=== PATIENT | male | born 1960 | race Caucasian/White ===

== ENCOUNTER 2017-09-16 15:36 | Emergency (ER) | payer OTHER ==
[2017-09-16] MEDS ORDERED: Sodium Chloride 0.9% 10 ML Syringe FLUSH PRN (15:38)
[2017-09-16] MEDS ORDERED: Sodium Chloride 0.9% 2.5 ML Syringe FLUSH PRN (15:38)
--- NOTE | 2017-09-16 15:45 | EDM.PDOC ---
<Mary Menjivar - Last Filed: 09/16/17 15:49> ED HPI GENERAL MEDICAL PROBLEM - General Chief Complaint: Neuro Symptoms/Deficits Stated Complaint: STROKE SYMPTOMS Time Seen by Provider: 09/16/17 15:38 Source of Information: Reports: Patient History Limitations: Reports: No Limitations - History of Present Illness INITIAL COMMENTS - FREE TEXT/NARRATIVE: History of present illness: []Patient noticed yesterday afternoon that he had right-sided facial swelling and numbness. He took Benadryl last night it seemed to helped. Today he was driving and noticed numbness and tingling of his left arm proximally one hour prior to arrival. He denies any headache, visual changes, weakness, speech difficulty, clumsiness or difficulty walking. Patient has had back pain under his ribs for about a month does not know why, denies any trauma. He is generally healthy and takes a baby aspirin and imaging E daily. Denies any heart disease, high blood pressure high cholesterol. Review of systems: As per history of present illness and below otherwise all systems reviewed and negative. Past medical history: As per history of present illness and as reviewed below otherwise noncontributory. Surgical history: As per history of present illness and as reviewed below otherwise noncontributory. Social history: No reported history of drug or alcohol abuse. Family history: As per history of present illness and as reviewed below otherwise noncontributory. Physical exam: General: Well developed, well nourished in NAD HEENT: Atraumatic, normocephalic, pupils reactive, negative for conjunctival pallor or scleral icterus, mucous membranes moist, throat clear, neck supple, nontender, trachea midline. Lungs: Clear to auscultation, breath sounds equal bilaterally, chest nontender. Heart: S1S2, regular, negative for clicks, rubs, or JVD. Abdomen: Soft, nondistended, nontender. Negative for masses or hepatosplenomegaly. Negative for costovertebral tenderness. Pelvis: Stable nontender. Genitourinary: Deferred. Rectal: Deferred. Extremities: Atraumatic, negative for cords or calf pain. Neurovascular unremarkable. Neuro: Awake, alert, oriented. Cranial nerves II through XII unremarkable. Cerebellum unremarkable. Motor and sensory unremarkable throughout. Exam nonfocal. Diagnostics: []CT head negative the rest of his workup will be followed up by Dr. [employer]: [] Impression: [] Plan: []Disposition per Dr. Holland Definitive disposition and diagnosis as appropriate pending reevaluation and review of above. - Related Data Allergies Allergy/AdvReac Type Severity Reaction Status Date / Time No Known Allergies Allergy Verified 09/16/17 15:58 Home Meds: Home Meds Aspirin [Adult Aspirin] 81 mg PO DAILY 09/16/17 [History] Vitamin E 1 unit PO DAILY 09/16/17 [History] ED ROS GENERAL - Review of Systems Review Of Systems: See Below (See history of present illness) ED EXAM, NEURO - Physical Exam Exam: See Below (See history of present illness) Course - Vital Signs Last Recorded V/S: Last Vital Signs Temp 97.4 F 09/16/17 15:49 Pulse 92 09/16/17 16:08 Resp 18 09/16/17 16:08 BP 124/84 09/16/17 16:08 Pulse Ox 94 L 09/16/17 16:08 - Orders/Labs/Meds Orders: Active Orders 24 hr Category Date Time Status Assess Neurological Status [RC] ASDIRECTED Care 09/16/17 15:38 Active Bedrest [RC] ASDIRECTED Care 09/16/17 15:38 Active Blood Glucose Check, Bedside [RC] STAT Care 09/16/17 15:38 Active Cardiac Monitoring [RC] . DIRECTED Care 09/16/17 15:38 Active EKG Documentation Completion [RC] STAT Care 09/16/17 15:38 Active Height and Weight [RC] UPON Care 09/16/17 15:38 Active Initiate Acute Stroke Protocol [RC] STAT Care 09/16/17 15:38 Active NIH Stroke Scale [RC] ASDIRECTED Care 09/16/17 15:38 Active Nursing Bedside Swallow Screen [RC] ASDIRECTED Care 09/16/17 15:38 Active Oxygen Therapy [RC] ASDIRECTED Care 09/16/17 15:38 Active Stroke Education, General [RC] Click to Edit Care 09/16/17 15:38 Active Vital Signs [RC] Q15M Care 09/16/17 15:38 Active Chest 1V Frontal [CR] Stat Exams 09/16/17 16:45 Taken Sodium Chloride 0.9% [Saline Flush] Med 09/16/17 15:38 Active 10 ml FLUSH ASDIRECTED PRN Sodium Chloride 0.9% [Saline Flush] Med 09/16/17 15:38 Active 2.5 ml FLUSH ASDIRECTED PRN Peripheral IV Insertion Adult [OM.PC] Stat Ot 09/16/17 15:38 Ordered Peripheral IV Insertion Adult [OM.PC] Stat Ot 09/16/17 15:38 Ordered Medication Orders Sodium Chloride (Saline Flush) 10 ml FLUSH ASDIRECTED PRN PRN Reason: Keep Vein Open Last Admin: 09/16/17 16:02 Dose: 10 ml Sodium Chloride (Saline Flush) 2.5 ml FLUSH ASDIRECTED PRN PRN Reason: Keep Vein Open Last Admin: 09/16/17 16:02 Dose: 2.5 ml Labs: Laboratory Tests 09/16/17 09/16/17 09/16/17 Range/Units 15:40 15:40 15:40 WBC 6.67 (4.0-11.0) K/uL RBC 4.96 (4.50-5.90) M/uL Hgb 15.1 (13.0-17.0) g/dL Hct 43.7 (38.0-50.0) % MCV 88.1 (80.0-98.0) fL MCH 30.4 (27.0-32.0) pg MCHC 34.6 (31.0-37.0) g/dL RDW Std Deviation 41.8 (28.0-62.0) fl RDW Coeff of Cait 13 (11.0-15.0) % Plt Count 226 (150-400) K/uL MPV 9.60 (7.40-12.00) fL Neut % (Auto) 68.3 (48.0-80.0) % Lymph % (Auto) 23.4 (16.0-40.0) % [place] % (Auto) 7.8 (0.0-15.0) % Eos % (Auto) 0.1 (0.0-7.0) % Baso % (Auto) 0.4 (0.0-1.5) % Neut # (Auto) 4.6 (1.4-5.7) K/uL Lymph # (Auto) 1.6 (0.6-2.4) K/uL [place] # (Auto) 0.5 (0.0-0.8) K/uL Eos # (Auto) 0.0 (0.0-0.7) K/uL Baso # (Auto) 0.0 (0.0-0.1) K/uL Nucleated RBC % 0.0 /100WBC Nucleated RBCs # 0 K/uL INR 0.93 APTT 28.9 (18.6-31.3) SEC Sodium 138 (136-148) mmol/L Potassium 3.8 (3.5-5.1) mmol/L Chloride 105 (98-107) mmol/L Carbon Dioxide 25.9 (21.0-32.0) mmol/L BUN 16 (7.0-18.0) mg/dL Creatinine 1.1 (0.8-1.3) mg/dL Est Cr Clr Drug Dosing 80.34 mL/min Estimated GFR (MDRD) > 60.0 ml/min Glucose 143 H (74-106) mg/dL Calcium 8.7 (8.5-10.1) mg/dL Total Bilirubin 0.3 (0.2-1.0) mg/dL AST 20 (15-37) IU/L ALT 25 (14-63) IU/L Alkaline Phosphatase 95 (46-116) U/L Troponin I < 0.050 (0.000-0.056) ng/mL Total Protein 7.8 (6.4-8.2) g/dL Albumin 4.0 (3.4-5.0) g/dL Globulin 3.8 H (2.0-3.5) g/dL Albumin/Globulin Ratio 1.1 L (1.3-2.8) TSH 3rd Generation 1.40 (0.36-3.74) uIU/mL Meds: Medications Generic Name Dose Route Start Last Admin Trade Name Freq PRN Reason Stop Dose Admin Sodium Chloride 10 ml 09/16/17 15:38 09/16/17 16:02 Saline Flush FLUSH 10 ml ASDIRECTED PRN Administration Keep Vein Open Sodium Chloride 2.5 ml 09/16/17 15:38 09/16/17 16:02 Saline Flush FLUSH 2.5 ml ASDIRECTED PRN Administration Keep Vein Open Departure - Departure Disposition: Home, Self-Care 01 Clinical Impression: Mass of parotid gland - Discharge Information Forms: ED Department Discharge Additional Instructions: Return if symptoms persist or worsen or new concerning symptoms develop Follow-up with primary care on return home for consideration of biopsy concerning your right parotid gland Continue current medications as directed The following information is given to patients seen in the emergency department who are being discharged to home. This information is to outline your options for follow-up care. We provide all patients seen in our emergency department with a follow-up referral. The need for follow-up, as well as the timing and circumstances, are variable depending upon the specifics of your emergency department visit. If you don't have a primary care physician on staff, we will provide you with a referral. We always advise you to contact your personal physician following an emergency department visit to inform them of the circumstance of the visit and for follow-up with them and/or the need for any referrals to a consulting specialist. The emergency department will also refer you to a specialist when appropriate. This referral assures that you have the opportunity for follow-up care with a specialist. All of these measure are taken in an effort to provide you with optimal care, which includes your follow-up. Under all circumstances we always encourage you to contact your private physician who remains a resource for coordinating your care. When calling for follow-up care, please make the office aware that this follow-up is from your recent emergency room visit. If for any reason you are refused follow-up, please contact the [facility] emergency department at and asked to speak to the emergency department charge nurse. - My Orders Last 24 Hours: My Active Orders 09/16/17 16:45 Chest 1V Frontal [CR] Stat - Assessment/Plan Last 24 Hours: My Active Orders 09/16/17 16:45 Chest 1V Frontal [CR] Stat <Darrel Holland - Last Filed: 09/16/17 17:36> ED HPI GENERAL MEDICAL PROBLEM - History of Present Illness INITIAL COMMENTS - FREE TEXT/NARRATIVE: Patient presents as above by private vehicle Patient has noticed some right facial swelling after shaving his amor a couple days ago which has concerned him along with what he describes as facial numbness however he does have sensation on the right cranial nerve VII distribution. He complained of left upper extremity numbness but states that has resolved and that he has had this many times in the past. The right facial swelling is his main focus or concerns/chief complaint today. However with the complaint of numbness I've offered observation admission and he refuses. Discussed CT findings of the parotid mass and he prefers to follow-up with his primary care in [place] and arrange biopsy their as he is here for work for 2 weeks and then will be returning home. No fever nausea vomiting diarrhea constipation chest pain shortness breath headache dizziness or palpitation no bowel or urine symptoms Patient has no numbness of the left upper extremity or face at current I believe after speaking with the patient ultimately did not have numbness but was presenting to evaluate the facial swelling in more detail, however, nonetheless he declines an observation admission and does not desire to seek biopsy urine town through our facility HEENT NCAT PERRLA EOMI nares patent oropharynx clear neck supple no meningeal sign parotid swelling on the right noted no redness warmth or fluctuance is in nontender lesion associated in the parotid distribution Chest is clear throughout without wheeze or crackle CV regular rate and rhythm no murmur Abdomen soft nontender nondistended bowel sounds in all 4 quadrants Extremities full range of motion strength 5 out of 5 no edema [employer] alert awake oriented cranial nerves II through x11` grossly unremarkable cerebellum unremarkable motor and sensory unremarkable throughout exam nonfocal Diagnostics lab as below CT head no contrast Therapeutics None Patient refused observation admission and desires to follow-up parotid mass with his primary care at home Impression Parotid mass lesion on the right Chronic history of baseline Definitive disposition and diagnosis as appropriate pending reevaluation and review of above Departure - Departure Time of Disposition: 17:35 Condition: Good
--- NOTE | 2017-09-16 15:48 | CT ---
EXAMINATION: Non contrast CT head. Coronal and sagittal reformats. HISTORY: Stroke code FINDINGS: No evidence of intra or extra axial hemorrhage, mass, midline shift, hydrocephalus or edema. No hypoattenuation changes in the major vascular territories to suggest acute infarct. No abnormal intracranial calcifications are detected. No evidence of substantial vascular calcificat ions. Paranasal sinuses and mastoid air cells are well aerated without substantial findings. There is a 2. 4 x 2.6 cm partially cystic right parotid mass. Pituitary fossa appears unremarkable. Orbits and globes are symmetric. Calvarium is intact. No evidence of skull fracture. IMPRESSION: 1. No acute intracranial findings. 2. There is a 2.4 x 2.6 cm right parotid mass. Correlation with ultrasound and possible biopsy may be beneficial. Above findings were called to the ER at 3:45 PM.
[2017-09-16 16:27] LABS: CHLORIDE,CL 105 mmol/L (98-107); SODIUM,NA 138 mmol/L (136-148)
--- NOTE | 2017-09-17 17:08 | CR ---
EXAM DATE: 09/16/17 PATIENT'S AGE: 57 Patient: ANGELICA DIXON Facility: [place], [place] Site . Site : 1960 Study: XRay Chest [id number]/15/2018 5:19:08 PM Ordering Physician: Otto Hernandez Final Report: Indication: Stroke protocol Technique: Chest 1 view Comparison: None Findings/Impression: Cardiovascular and mediastinum: Unremarkable cardiac size for a portable technique. A mildly unfolded aorta. Lungs and pleural space: Apparent minor left basilar subsegmental atelectasis. No consolidation or pleural effusions. Bones and soft tissues: No significant findings. Dictated by Hector Bennett MD @ 09/16/2017 5:39:49 PM Dictated by: Hector Bennett MD @ 09/16/2017 17:40:54 (Electronic Signature) Report Signed by Proxy. SYLVESTER
== END 2017-09-16 17:47 | disposition home or self-care (01) ==
LOC: MW.ED 15:36
DX: K11.8 Other diseases of salivary glands (principal); Z79.899 Other long term (current) drug therapy
CPT/HCPCS: 36415; 70450; 70450-26; 71045; 71045-26; 80053; 84443; 84484; 85025; 85610; 85730; 99284; 99285-25